=== PATIENT | male | born 1970 | race Caucasian/White ===

== ENCOUNTER 2016-05-06 14:24 | Inpatient (IN) | payer MEDICAID ==
[~2016-05-06] VITALS: Ht 180.3 cm; Wt 86.6 kg
--- NOTE | 2016-05-06 14:24 | NUR ---
Patient BIBA BLS, transferred to bed 3. RN evaluating patient at bedside.
[2016-05-06 14:33] VITALS: BP 141/76
[2016-05-06] MEDS ORDERED: NACL 0.9% 1,000 ML IV SCH (14:49)
[2016-05-06] MEDS ORDERED: MULTIVITAMIN1 SGL PO (14:49)
[2016-05-06] MEDS ORDERED: NATURE'S BLEND F1 MG PO (14:49)
[2016-05-06] MEDS ORDERED: NATURE'S BLEND500 M2 PO (14:49)
[2016-05-06] MEDS ORDERED: LASIX20 MG PO (14:49)
[2016-05-06] MEDS ORDERED: ALDACTONE50 MG PO (14:49)
[2016-05-06] MEDS ORDERED: ONDANSETRON 4 MG/2 ML VIAL IVP ONE (14:50)
[2016-05-06] MEDS ORDERED: FAMOTIDINE 20 MG/2 ML VIAL IVP ONE (14:50)
--- NOTE | 2016-05-06 15:06 | NUR ---
PATIENT PRESENTS TO ED WITH BS ON FIELD 120,ZOFRAN 4MG.PO GIVEN BY PARAMEDICS,HAD BEER X2 DAYS AGO.ERMD AWARE. HX: HEP.C,LIVER CIRRHOSIS,LOW PLATELETS,UMBILICAL HERNIA DENIES N/V/D; SKIN IS PINK/WARM/DRY; AAOX4 WITH EVEN AND STEADY GAIT; LUNGS CLEAR BL; HR EVEN AND REGULAR; PT DENIES ANY FEVER, CP, SOB, OR COUGH AT THIS TIME; PATIENT STATES PAIN OF 8/10 AT THIS TIME; VSS; PATIENT POSITIONED FOR COMFORT; HOB ELEVATED; BEDRAILS UP X2; BED DOWN. ER MD MADE AWARE OF PT STATUS.
[2016-05-06] MEDS ORDERED: LACTULOSE 20 GM/30 ML UDC PO ONE (16:25)
--- NOTE | 2016-05-06 17:50 | NUR ---
Patient will be admitted to care of DR. TAM. Admited to TELE Will go to shud[facility] B Belongings list completed. Report to TC GUTIERREZ.
--- NOTE | 2016-05-06 18:15 | NUR ---
RECEIVED PT FROM ER, PT IS AMBULATORY, AAO X4, SKIN INTACT, IV ON RIGHT AC FLUSHED PATENT AND INTACT, NO S/S OF RESPIRATORY DISTRESS OR DISCOMFORT NOTED, VITALS STABLE, MRSA COLLECTED, ORIENTED PT IN THE ROOM AND USE OF CALL LIGHT, SAFETY/FALL PRECAUTION ENFORCED, CALL LIGHT WITHIN REACH, WILL CONTINUE TO MONITOR.
[2016-05-06] MEDS ORDERED: ONDANSETRON 4 MG/2 ML VIAL IVP PRN (18:25)
[2016-05-06] MEDS ORDERED: THIAMINE 200 MG/2 ML VIAL IM SCH (18:30)
[2016-05-06] MEDS ORDERED: LORazepam 2 MG/ML VIAL IVP PRN (18:30)
--- NOTE | 2016-05-06 19:00 | NUR ---
ENDORSED PT TO DAVIE Botello RN FOR CONTINUITY OF CARE. PT IS STABLE AT THIS TIME.
[2016-05-06 19:10] VITALS: BP 122/65
--- NOTE | 2016-05-06 19:10 | NUR ---
RECEIVED REPORT FROM DAY NURSEPERCY. PATIENT RESTING IN BED. NO RESPIRATORY DISTRESS, SOB, OR DISCOMFORT. INITIAL ASSESSMENT AND BODY CHECK DONE. PATIENT IS AOX4, DRY SCABS NOTED TO ANTERIOR LEFT LOWER EXTREMITY, WOUND NOTED TO POSTERIOR LEFT LOWER EXTREMITY WITH DRY SCABS ABOVE IT. WOUND IS JAYRO WITH NO DRAINAGE. PATIENT ALSO HAS ANKLE MONITOR TO LEFT LOWER EXTREMITY. IV ACCESS TO RIGHT AC 20G, PATENT. DISCUSSED PLAN OF CARE, MEDICATION REGIMENT, AND PAIN MANAGEMENT WITH PATIENT. PATIENT VERBALIZED UNDERSTANDING. PLACED PATIENT ON SAFETY/SEIZURE PRECAUTIONS. CALL LIGHT LEFT WITHIN REACH, WILL CONTINUE TO MONITOR.
--- NOTE | 2016-05-06 19:20 | NUR ---
PATIENT BECOMING INCREASINGLY AGITATED. REQUESTING HOSPITAL STAFF TO REMOVE ANKLE MONITOR BRACELET. MANAGER BILLING AND CHARGE NURSE NOTIFIED. SECURITY ALONG WITH LOCAL PD CALLED. SPOKE WITH PATIENT IN REGARDS TO SITUATION. PATIENT CALM DOWN AND VERBALIZED UNDERSTANDING. WILL CONTINUE TO MONITOR.
--- NOTE | 2016-05-06 19:30 | NUR ---
I was called to the room of the patient in the capacity of the Faro Dealer, the patient was demanding that the nursing staff remove his Law Enforcement Placed Ankle Tracking device on his left ankle. When I arrived I assessed the left ankle and foot, the ankle bracelet was not cutting off the patients circulation, there was no signs of decreased perfusion to the foot, the foot has some edema but was warm to touch and was the appropriate skin color. There is pre-existing bruising below the ankle device, no active bleeding, positive pedal pulse. The patient has a large band-aid covering the front of his left leg about 4 inches above the ankle bracelet. Patient states the ankle device is cutting off his circulation and making him bleed. I advised the patient that I was able to place a finger between the device and his ankle, there is no signs of active bleeding, nor are there any signs of a medical need for us to remove his device. The device can be easily slid down his ankle, but the patient keeps pulling the device up his leg trying to prove it is tight. Patient became belligerent, cursing at me and staff, threatening that he is a "research assistant member" he can "break bricks with his head" and inferred that he would try to assault me. I advised the patient that he is not to be disruptive or threatening to other patients, nor staff and that regardless of his yelling we will not remove his device. I advised the patient that I would be happy to call his hydrological technical officer to request that they remove his ankle bracelet, I requested the number so I can call, he yelled at me saying he does not have the phone number to call. He was screaming and cursing in his room but it could be heard throughout the MST unit being extremely disruptive to all patients, I called security to [facility] and called [place] Police. Police arrived and spoke with the patient and notified him that they would not be loosening nor removing his ankle bracelet and that he was released from long-term under the agreement he had to wear that. He was advised by Police to stop asking the hospital staff to remove his ankle bracelet and he agreed. He was instructed by Police that he needed to be respectful to staff so that we can treat him, patient calmed down and agreed. Security left on standby while radiology staff where doing testing with patient including being transported to CT. I requested security to be present until we finished all his required tests for staff safety. I advised both day and night charge nurses and the primary nurse for the patient what the plan is and that should they feel threatened to immediately call the powerhouse operator and security.
--- NOTE | 2016-05-06 20:08 | NUR ---
DR. SAEZ PAGED AT THIS TIME, ON-CALL FOR DR. TAM.
--- NOTE | 2016-05-06 20:11 | NUR ---
SPOKE WITH DR. SAEZ OVER THE PHONE. CLARIFIED WITH MD OF THIAMINE ROUTE OF ADMINISTRATION. OKAY BY MD TO CHANGE ROUTE FROM IM TO PO, ALSO RECEIVED DIET ORDER AT THIS TIME.
[2016-05-06] MEDS ORDERED: THIAMINE 100 MG TAB PO SCH (20:36)
[2016-05-06] MEDS: NACL 0.9% 1,000 ML IV SCH (21:41)
[2016-05-06] MEDS: CALCIUM CARBONATE 500 MG TAB PO SCH (21:42)
[2016-05-06] MEDS: LACTULOSE 20 GM/30 ML UDC PO SCH (21:42)
[2016-05-06] MEDS: LORazepam 1 MG TAB PO SCH ×3 (21:42→21:47)
--- NOTE | 2016-05-06 21:47 | NUR ---
1830 LORAZEPAM MEDICATION HELD AT THIS TIME; WAS NOT GIVEN DURING PREVIOUS SHIFT, TOO CLOSE TO 2100 DOSE. PATIENT IN BED, RESTING, NO AGITATION OR ANXIETY NOTED. NO RESPIRATORY DISTRESS, SOB, OR DISCOMFORT. CALL LIGHT LEFT WITHIN REACH, WILL CONTINUE TO MONITOR.
--- NOTE | 2016-05-06 22:02 | NUR ---
PATIENT IN BED, SLEEPING. NO RESPIRATORY DISTRESS, SOB, OR DISCOMFORT. CALL LIGHT LEFT WITHIN REACH, WILL CONTINUE TO MONITOR.
[2016-05-07] VITALS: BP 110/70
--- NOTE | 2016-05-07 00:40 | NUR ---
PATIENT ASLEEP. NO RESPIRATORY DISTRESS, SOB, OR DISCOMFORT. CALL LIGHT LEFT WITHIN REACH, WILL CONTINUE TO MONITOR.
--- NOTE | 2016-05-07 03:18 | NUR ---
PATIENT SLEEPING. NO RESPIRATORY DISTRESS, SOB, OR DISCOMFORT. CALL LIGHT LEFT WITHIN REACH, WILL CONTINUE TO MONITOR.
[2016-05-07 04:00] VITALS: BP 126/64
[2016-05-07] MEDS: LORazepam 1 MG TAB PO SCH ×3 (04:20→20:32)
--- NOTE | 2016-05-07 06:02 | NUR ---
PATIENT IN BED, ASLEEP. NO RESPIRATORY DISTRESS, SOB, OR DISCOMFORT. CALL LIGHT LEFT WITHIN REACH, WILL CONTINUE TO MONITOR.
--- NOTE | 2016-05-07 07:21 | NUR ---
REPORT GIVEN TO DAY NURSEIRIS. PATIENT RESTING IN BED, STABLE. NO RESPIRATORY DISTRESS, SOB, OR DISCOMFORT. ALL NEEDS ATTENDED TO DURING SHIFT, CALL LIGHT LEFT WITHIN REACH.
--- NOTE | 2016-05-07 07:22 | NUR ---
RECEIVED REPORT FROM NIGHT NURSE, DAVIE MONTEZ. PATIENT APPEARED TO BE CALM AWAKE AND SITING RESTING IN BED. AAOX4 NO RESPIRATORY DISTRESS, SOB, OR DISCOMFORT. INITIAL ASSESSMENT AND BODY CHECK DONE. PATIENT DENIED ANY PAIN OF CHEST DISCOMFORT. PATIENT HAS DRY SCABS NOTED TO ANTERIOR LEFT LOWER EXTREMITY, WOUND NOTED TO POSTERIOR LEFT LOWER EXTREMITY WITH DRY SCABS ABOVE IT. WOUND IS JAYRO WITH NO DRAINAGE. PATIENT ALSO HAS ANKLE MONITOR TO LEFT LOWER EXTREMITY. IV ACCESS TO RIGHT AC 20G, PATENT. DISCUSSED PLAN OF CARE, MEDICATION REGIMENT, AND PAIN MANAGEMENT WITH PATIENT. PATIENT VERBALIZED UNDERSTANDING. PLACED PATIENT ON SAFETY/SEIZURE PRECAUTIONS. CALL LIGHT LEFT WITHIN REACH, WILL CONTINUE TO MONITOR.
[2016-05-07] MEDS: FOLIC ACID 1 MG TAB PO SCH (08:45)
[2016-05-07] MEDS: MULTIVITAMIN 1 TAB PO SCH (08:45)
[2016-05-07] MEDS: THIAMINE 100 MG TAB PO SCH (08:45)
[2016-05-07] MEDS: CALCIUM CARBONATE 500 MG TAB PO SCH ×2 (08:46→20:31)
[2016-05-07] MEDS: LACTULOSE 20 GM/30 ML UDC PO SCH ×2 (08:46→20:32)
[2016-05-07] MEDS: SPIRONOLACTONE 50 MG TAB PO SCH (08:46)
[2016-05-07 08:47] VITALS: BP 121/71
[2016-05-07] MEDS: FUROSEMIDE 20 MG TAB PO SCH (08:47)
--- NOTE | 2016-05-07 08:50 | NUR ---
DUE MORNING MEDICATIONS AND TEACHING GIVEN, PATIENT TOLERATED WELL AND VERBALIZED UNDERSTANDING. NO SIGN OF DISTRESS NOTED AT THIS TIME. NO COMPLAINING OF DISCOMFORT. ALL NEEDS ARE MET. CALL LIGHT WITHIN REACH. WILL CONTINUE TO MONITOR.
[2016-05-07] MEDS ORDERED: MAGNESIUM OXIDE 400 MG TAB PO SCH (10:30)
[2016-05-07] MEDS ORDERED: POTASSIUM PHOSPHATE 15 MM in NACL 0.9% 250 ML IV SCH (11:00)
--- NOTE | 2016-05-07 11:00 | NUR ---
GAVE PATIENT URINE CUP FOR SAMPLE FOR DRUG SCREEN AND INSTRUCTED PATIENT TO PEE IN CUP WHEN POSSIBLE, PATIENT VERBALIZED UNDERSTANDING.
[2016-05-07] MEDS: NACL 0.9% 1,000 ML IV SCH (11:02)
[2016-05-07] MEDS: MORPHINE SULFATE 2 MG/ML SYR IVP PRN (11:39)
[2016-05-07 11:45] VITALS: BP 114/60
--- NOTE | 2016-05-07 11:51 | NUR ---
DUE MEDICATIONS AND IVP MORPHINE GIVEN FOR ABD PAIN 11/26. PATIENT TOLERATED WELL. NO SIGN OF SOB OR RESPIRATORY DISTRESS NOTED AT THIS TIME. VSS, ALL NEEDS ARE MET. CALL LIGHT WITHIN REACH. WILL CONTINUE TO MONITOR.
[2016-05-07] MEDS ORDERED: CALCIUM CARB 600 MG TAB PO SCH (12:00)
[2016-05-07] MEDS ORDERED: ALBUTEROL SULFATE/IPRATROPIU 3 ML SOL IH PRN (12:20)
--- NOTE | 2016-05-07 13:22 | NUR ---
INFORMED TC PATRICK THAT THE PT HAS GIVEN THE SPUTUM SAMPLE AND IS AT BEDSIDE AND THE PT IS COMPLAINING THAT IV IS HURTING ARM
--- NOTE | 2016-05-07 14:48 | NUR ---
PATIENT SLEEP WELL IN BED. NO SIGN OF DISTRESS NOTED. ALL NEEDS ARE MET. CALL LIGHT WITHIN REACH. WILL CONTINUE TO MONITOR.
[2016-05-07 16:00] VITALS: BP 123/64
--- NOTE | 2016-05-07 16:50 | NUR ---
INSTRUCTED PATIENT TO COUGH UP AND PIT UP TO THE CUP FOR SPUTUM CULTURE, PATIENT VERBALIZED UNDERSTANDING.
[2016-05-07] MEDS: PIPER/TAZO 2.25GM/D5W PREMIX 50 ML IV SCH ×2 (17:23→23:57)
--- NOTE | 2016-05-07 19:00 | NUR ---
PATIENT STATED HE WAS UNABLE TO SPIT UP SPUTUM OUT TO THE CUP BUT WILL TRY LATER.
--- NOTE | 2016-05-07 19:04 | NUR ---
ENDORSED PATIENT CURRENT PLAN OF CARE TO NIGHT NURSE JOEY CROW. PATIENT RESTING WELL IN BED. NO SIGN OF DISTRESS NOTED.
--- NOTE | 2016-05-07 19:05 | NUR ---
PT IS CURRENTLY RESTING IN BED AWAKE ALERT,PT IS AWARE THAT SPUTUM IS NEEDED,PT VERBALIZES UNDERSTANDING.PT REFUSES TO HAVE SIDERAILS PADDED FOR SAFETY AND SZ PREC,BUT ALSO AT THIS TIME NO PADDING IS AVAILABLE FOR THE SIDERAILS. PT DENIES PAIN AND DISCOMFORT.IVF INFUSING WELL IV SITE IS CURRENTLY PATENT.PATIENT IS LISTENING TO HIS MUSIC.CALL LIGHT WITHIN REACH WILL CONTINUE TO MONITOR.
--- NOTE | 2016-05-07 19:23 | NUR ---
MD HERRERA CAME TO SEE THE PATIENT AND ORDERED TO STOP IV FLUIDS.ORDERS WILL BE CARRIED OUT.
[2016-05-07 20:00] VITALS: BP 126/70
--- NOTE | 2016-05-07 20:00 | NUR ---
Patient's Plan of Care was discussed and reviewed with CALL BOX WIRER: TRISTIN Smith
--- NOTE | 2016-05-07 20:15 | NUR ---
PT ASLEEP,NO DISTRESS, NO HHN TX NEEDED
[2016-05-07] MEDS: SACCHAROMYCES 250 MG CAP PO SCH (20:32)
--- NOTE | 2016-05-07 20:32 | NUR ---
PT REFUSED TO TAKE THE LACTULOSE I EXPLAINED WHY HE NEEDS TO TAKE IT PT STATES,"IM NOT TAKING THAT SHIT."PT REFUSED AND COVERED HIS HEAD.
--- NOTE | 2016-05-07 22:15 | NUR ---
PT IS CURRENTLY RESTING IN BED LISTENING TO HIS MUSIC WILL CONTINUE TO MONITOR.CALL LIGHT WITHIN REACH.
[2016-05-08] VITALS: BP 144/70
--- NOTE | 2016-05-08 | NUR ---
PT IS CURRENTLY SLEEPING IN BED,PT DENIES PAIN AND DISCOMFORT,NO SZ ACTIVITY NOTED,PT AMBULATES WELL AND CONTINUES TO REFUSE THE SCD'S PT STATES,"I DON'T WANT IT THEY GET IN THE WAY WHEN I TRY TO WALK,"PT REFUSED SCD'S. PT NEEDS MET LISTENS TO HIS MUSIC AND IS ABLE TO MAKE NEEDS KNOWN CALL LIGHT WITHIN REACH.
--- NOTE | 2016-05-08 00:30 | NUR ---
PT WAS REMINDED THAT SPUTUM SPECIMEN IS NEEDED.PT IS COUGHING AT TIMES, BUT COUGHT IS NON PRODUCTIVE AT THIS TIME.
--- NOTE | 2016-05-08 02:27 | NUR ---
PT HAS AN EPISODE OF CONFUSION ASSISTED BACK TO BED,AND CONTINUES TO BE MONITORED.ASSISTED BY NICHOLE ORTEGA AND MYSELF BACK TO BED. WILL CONTINUE TO MONITOR.
--- NOTE | 2016-05-08 02:49 | NUR ---
PT STABLE SLEEPING IN BED HIS TOILET GOT CLOGGED AND EVS MALE SODA JERKER CAME TO UNGLOG IT.
--- NOTE | 2016-05-08 04:35 | NUR ---
PT ASLEEP IN BED LISTENING TO HIS MUSIC.WILL CONTINUE TO MONITOR.
[2016-05-08 04:39] VITALS: BP 124/66
[2016-05-08] MEDS: LORazepam 1 MG TAB PO SCH ×3 (05:00→21:29)
[2016-05-08] MEDS: PIPER/TAZO 2.25GM/D5W PREMIX 50 ML IV SCH ×3 (05:20→17:22)
--- NOTE | 2016-05-08 05:25 | NUR ---
IM UNABLE TO COLLECT SPUTUM SPECIMEN AT THIS TIME PT IS NOT COUGHING NOT PRODUCING ANY SPUTUM.PT IS AWARE THAT SPECIMEN IS NEEDED AND VERBALIZES UNDERSTANDING.
--- NOTE | 2016-05-08 05:33 | NUR ---
ATIVAN PO MEDICATION HELD AT THIS TIME PT IS ASLEEP IN BED.WILL CONTINUE TO MONITOR.
--- NOTE | 2016-05-08 06:49 | NUR ---
PT RESTING IN BED INSTRUCTED AND EDUCATED TO DO THE BREATHING EXERCISES WITH THE INCENTIVE SPIROMETER PT VERBALIZES UNDERSTANDING PT STATES,"I'LL DO IT LATER."PT IN ROOM LISTENING TO MUSIC.
--- NOTE | 2016-05-08 07:23 | NUR ---
PT STABLE REPORT ENDORSED TO JOEY OSORIO AT BEDSIDE.
--- NOTE | 2016-05-08 07:23 | NUR ---
ASSUMED CONTINUITY OF CARE. NO SIGNS AND SYMPTOMS OF ACUTE DISTRESS NOTED. INITIAL ASSESSMENT DONE. HOB ELEVATED. EXPLAINED DIAGNOSIS, PLAN OF CARE, PAIN MANAGEMENT TEACHING, USE OF CALL LIGHT/BED/TV/BATHROOM. VERBALIZED UNDERSTANDING. SEIZURE AND FALL PRECAUTION APPLIED. CALL LIGHT WITHIN REACH.
--- NOTE | 2016-05-08 07:30 | NUR ---
Patient's Plan of Care was discussed and reviewed with JOEY: MIKI.
[2016-05-08 08:00] VITALS: BP 121/72
--- NOTE | 2016-05-08 08:30 | NUR ---
WOUND CARE EVALUATION NOTES: REASON FOR EVALUATION: LOW ADRIÁN AND LEFT FOOT WOUND COMPLETE SKIN ASSESSMENT DONE ON THIS 46 MALE PATIENT FROM HOME TO [facility], WITH INITIAL DIAGNOSIS OF ABDOMINAL PAIN, HEPATITIS C AND THROMBOCYTOPENIA. PAST MEDICAL HISTORY INCLUDE LIVER CIRRHOSIS, HEPATITIS C, RENAL FAILURE, THROMBOCYTOPENIA AND UMBILICAL HERNIA. ALL ABOVE INFORMATION WAS OBTAINED FROM THE ADMISSION H&P. LABS ARE WBC 3.7, H/H 9.2/28.1, GLUCOSE 101, ALBUMIN 2.0, PT/INR 14.4/1.5 AND PTT 33.1. CURRENT MEDS INCLUDE ZOSYN, THIAMINE, MULTIVITAMINS/ASCORBIC ACID, ATIVAN AND MORPHINE. PATIENT IS AWAKE, ALERT, ORIENTED TO PERSON, PLACE, DATE AND TIME. SKIN WARM TO TOUCH WNL, TOENAILS ARE THICKENED AND DISCOLORED, NO EDEMA, NO HAIR GROWTH AND +3 BILATERAL PEDAL PULSES. URINE AND BOWEL CONTINENT, ABLE TO AMBULATE TO THE RESTROOM CLAIMED. ABLE TO MAKE HIS NEEDS KNOWN. SURGICAL SCARRING NOTED ON THE ABDOMEN. ABLE TO TURN SELF WITH NO ASSISTANCE. INITIAL PLAN OF CARE AND PRESSURE PREVENTIVE MEASURES DISCUSSED, ABLE TO VERBALIZE UNDERSTANDING. INTEGUMENTARY: LEFT POSTERIOR ANKLE - ABRASIONS - MULTIPLE BROWN SCABS. NOTED TO HAVE A ANKLE MONITOR. PW RED LEFT ANTERIOR ANKLE - ABRASION - 100% BROWN RED SCAB. RECOMMENDATIONS: -PAINT LEFT FOOT ABRASIONS WITH SKIN PREP WIPES BIDWC AND LEAVE OPEN TO AIR -TURN AND REPOSITION PATIENT Q2H -ASSESS AND MONITOR SKIN CONDITION DURING POSITION CHANGE, PLEASE PAY PARTICULAR ATTENTION TO SACRALCOCCYX, ELBOWS AND HEELS -OFFLOAD BILATERAL HEELS BY PLACING PILLOWS UNDER CALVES AT ALL TIMES, UNLESS OTHERWISE CONTRAINDICATED -KEEP SKIN CLEAN AND DRY AT ALL TIMES. RECOMMENDATIONS DISCUSSED WITH PRIMARY RN AND RESIDENT PHYSICIAN, DR. GRAMAJO. NO FOLLOW UP NEEDED AT THIS TIME. PLEASE CONTACT [facility] FOR ANY CONCERNS, QUESTIONS AND CHANGES IN WOUND CONDITION.
[2016-05-08] MEDS: CHLORHEXADINE GLUC 2% CLOTH TP SCH (09:19)
[2016-05-08] MEDS: FOLIC ACID 1 MG TAB PO SCH (09:20)
[2016-05-08] MEDS: SPIRONOLACTONE 50 MG TAB PO SCH (09:20)
[2016-05-08] MEDS: MULTIVITAMIN 1 TAB PO SCH (09:20)
[2016-05-08] MEDS: LACTULOSE 20 GM/30 ML UDC PO SCH ×2 (09:20→21:29)
[2016-05-08] MEDS: SACCHAROMYCES 250 MG CAP PO SCH ×2 (09:20→21:29)
[2016-05-08] MEDS: THIAMINE 100 MG TAB PO SCH (09:20)
--- NOTE | 2016-05-08 09:20 | NUR ---
PATIENT HAS BEEN SCREENED AND CATEGORIZED HIGH NUTRITION RISK. PATIENT WILL BE SEEN WITHIN 1-2 DAYS OF ADMISSION. 05/07/16-05/08/[address] Addendum: 05/09/16 at [address] FNS CONSULT RECEIVED 05/07/16 FOR WOUNDS FOUND TO BE INAPPROPRIATE. BETITO SPOKE WITH WOMEN SPECIALIST REGARDING PT WOUNDS. RN REPORTS PT WITH SCABS AND ABRASIONS D/T PT ANKLE BRACELET AND PT CURRENT ADRIÁN SCORE IS 21. NO NUTRITIONAL INTERVENTION NEEDED FOR PT WOUNDS AT THIS TIME. PATIENT HAS BEEN RESCREENED AND RECATEGORIZED MODERATE NUTRITION RISK. PATIENT WILL BE SEEN WITHIN 3-5 DAYS OF ADMISSION. 05/09/16-05/11/[address]
[2016-05-08] MEDS: CALCIUM CARBONATE 500 MG TAB PO SCH ×2 (09:21→21:29)
[2016-05-08] MEDS: MUPIROCIN 2% OINT 22 GM TUBE TP SCH (09:21)
[2016-05-08] MEDS: FUROSEMIDE 20 MG TAB PO SCH (09:22)
[2016-05-08 12:00] VITALS: BP 107/62
--- NOTE | 2016-05-08 13:10 | NUR ---
DR. Aurora HOLDEN CAME, CHECKED PT. CHART AND SEEN PT.
--- NOTE | 2016-05-08 15:17 | NUR ---
DR. HERRERA CAME, SEEN PT., AND CHECKED PT. CHART.
--- NOTE | 2016-05-08 15:26 | NUR ---
CM NOTE PER GOLF STARTER AND RANGER CORTEZ EXT [phone], REVIEWS SHOULD BE SENT TO BOTH [facility] FAX# [phone] AND [facility] FAX# [phone]. INITIAL REVIEW SENT TO [facility] FAX# [phone] PH# [phone] AND TO [facility] FAX# [phone] PH# [phone] CM EXT [phone]
[2016-05-08 16:00] VITALS: BP 105/54
--- NOTE | 2016-05-08 16:00 | NUR ---
VITALS SIGNS STABLE. NO C/O PAIN. CONTINUE MONITORING.
[2016-05-08] MEDS ORDERED: CHLORHEXADINE GLUC 2% CLOTH TP SCH (19:15)
--- NOTE | 2016-05-08 19:16 | NUR ---
ENDORSED TO LIDYA GUEVARA. IN STABLE CONDITION.
--- NOTE | 2016-05-08 19:30 | NUR ---
RECEIVED FROM AM RN IN BED AWAKE AND NO SOB. LISTENING TO HIS PHONE / MUSIC. NO COMPLAINTS DONE. INTRODUCED MYSELF. REMINDED TO CALL AND USE CALL LIGHT FOR ANY HELP HE MIGHT NEED. DENIES PAIN AT THIS TIME. IVF SITE TO RAC#20 INTACT AND NO INFILTRATION. RE-ORIENTED TO ROOM AND CAREGIVERS. CARE PLANS FOR THE NIGHT DISCUSSED WITH PT. A/O X 4. ROM X 4.
--- NOTE | 2016-05-08 19:35 | NUR ---
NO DISTRESS/SOB/WHEEZING NOTED AT THIS TIME. NO INDICATION FOR HHN PRN TX.
--- NOTE | 2016-05-08 19:55 | NUR ---
MD GRAMAJO,V/RESIDENT CALLED AND INFORMED ME THAT THE PT. WILL BE TRANSFUSED WITH PLATELETS. WILL FOLLOW UP WITH ORDER AND WILL FOLLOW UP WITH LAB. WILL INFORM PT.
[2016-05-08 20:00] VITALS: BP 116/64
--- NOTE | 2016-05-08 23:36 | NUR ---
PT. NOTED ABLE TO TURN SELF. WAITING FOR PLATELETS ORDERED TO BE DELIVERED. LAB. TECH TOLD ME THEY WILL CALL ME IF IT COMES. PT. ABLE TO VERBALIZE NEEDS WELL. ABLE TO USE CALL LIGHT.
[2016-05-09] VITALS (7 sets, daily range): BP systolic 104–125; BP diastolic 59–82
[2016-05-09] MEDS: PIPER/TAZO 2.25GM/D5W PREMIX 50 ML IV SCH ×4 (00:21→17:35)
[2016-05-09] MEDS: MORPHINE SULFATE 2 MG/ML SYR IVP PRN ×2 (00:41→06:47)
--- NOTE | 2016-05-09 00:44 | NUR ---
PT. ABLE TO GO BM . PER PT. MODERATE AMOUNT. ENCOURAGED TO CALL IN CASE HE GOES BM AGAIN. REQUESTED FOR PAIN RELIEVER "MORPHINE IVP" MEDICATED REQUESTED. COMPLAINED OF ABDOMINAL PAIN. VERBALIZES NEEDS WELL. AMBULATED TO RESTROOM BY HIMSELF.
--- NOTE | 2016-05-09 01:39 | NUR ---
FOLLOWED UP WITH LAB. RE: PLATELETS ORDERED FOR TRANSFUSION. " NOT IN HERE YET AND I WILL CALL YOU IF IT IS DELIVERED. " PER IN CHARGE OF THE BLOOD BANK. CHARGE NURSE AWARE.
--- NOTE | 2016-05-09 03:30 | NUR ---
PT. SLEEPING. NO RESTLESSNESS NOTED. CALL LIGHT WITH IN REACH. A/OX 4. TELEMETRY MONITORING.
--- NOTE | 2016-05-09 05:20 | NUR ---
PLATELET TRANSFUSION STARTED. CONSENT SIGNED PRIOR TRANSFUSING.
--- NOTE | 2016-05-09 06:00 | NUR ---
PLATELETS GIVEN NO ADVERSE REACTIONS SEEN. AWAKE AND ALERT AND VERBALIZES WELL. NO SOB. NO URTICARIA NOTED. TELEMETRY MONITORING.
[2016-05-09] MEDS: LORazepam 1 MG TAB PO SCH (06:27)
--- NOTE | 2016-05-09 07:20 | NUR ---
ASSUMED CONTINUITY OF CARE. NO SIGNS AND SYMPTOMS OF ACUTE DISTRESS NOTED. INITIAL ASSESSMENT DONE. HOB ELEVATED. EXPLAINED DIAGNOSIS, PLAN OF ARE, PAIN MANAGEMENT TEACHING, CONTACT ISOLATION PRECAUTION, USE OF CALL LIGHT/BED/TV/BATHROOM. VERBALIZED UNDERSTANDING. CALL LIGHT WITHIN REACH.
--- NOTE | 2016-05-09 07:30 | NUR ---
Patient's Plan of Care was discussed and reviewed with SLAB OFF MILL TENDER: MIKI OSORIO
--- NOTE | 2016-05-09 07:31 | NUR ---
ENDORSED TO THE NEXT NURSE AWAKE AND ALERT. NO FURTHER COMPLAINTS DONE. GAVE MORPHINE IVP 2 MG. REQUESTED EARLIER. USES CALL LIGHT FOR HELP.
[2016-05-09] MEDS: CHLORHEXADINE GLUC 2% CLOTH TP SCH (08:49)
[2016-05-09] MEDS: THIAMINE 100 MG TAB PO SCH (08:50)
[2016-05-09] MEDS: CALCIUM CARBONATE 500 MG TAB PO SCH ×2 (08:50→21:30)
[2016-05-09] MEDS: LACTULOSE 20 GM/30 ML UDC PO SCH ×2 (08:50→21:30)
[2016-05-09] MEDS: SACCHAROMYCES 250 MG CAP PO SCH ×2 (08:50→21:30)
[2016-05-09] MEDS: MULTIVITAMIN 1 TAB PO SCH (08:51)
[2016-05-09] MEDS: FOLIC ACID 1 MG TAB PO SCH (08:51)
[2016-05-09] MEDS: MUPIROCIN 2% OINT 22 GM TUBE TP SCH (08:51)
[2016-05-09] MEDS: SPIRONOLACTONE 50 MG TAB PO SCH ×2 (08:56→09:03)
[2016-05-09] MEDS: FUROSEMIDE 40 MG TAB PO SCH ×2 (08:56→09:03)
[2016-05-09] MEDS ORDERED: MUPIROCIN 2% OINT 22 GM TUBE TP SCH (09:00)
--- NOTE | 2016-05-09 09:00 | NUR ---
JAKY ADANODORE SAID IT'S OK TO GIVE ALDACTONE AND LASIX FOR BP 104/59.
--- NOTE | 2016-05-09 09:42 | NUR ---
CALLED LUZ ELENA FROM BLOOD BANK AND VERIFIED MD ORDER OF 4 UNITS PLATELET. PER LUZ ELENA FROM BLOOD BANK THEY HAVE TO ORDER IT STAT. INFORMED CHARGE NURSE MARTHA GUEVARA.
--- NOTE | 2016-05-09 10:13 | NUR ---
DR. HERRERA CAME, SEEN PT., AND REVIEWED PT. CHART.
--- NOTE | 2016-05-09 11:10 | NUR ---
JOSEPH ADAN MADE AWARE OF PLATELET NOT AVAILABLE YET FOR TRANSFUSION.
--- NOTE | 2016-05-09 11:35 | NUR ---
CM NOTE CONCURRENT REVIEW SENT TO [facility] FAX# [phone] PH# [phone] AND TO [facility] FAX# [phone] PH# [phone] CM EXT [phone]
--- NOTE | 2016-05-09 13:43 | NUR ---
CALLED LUZ ELENA FROM BLOOD BANK AND ASKED FOR PLATELET AVAILABILITY. PER LUZ ELENA, THEY ARE STILL PROCESSING PLATELET OF THIS TIME AND THEY WILL CALL IF PLATELET IS AVAILABLE ALREADY. INFORMED CHARGE NURSE MARTHA GUEVARA.
--- NOTE | 2016-05-09 17:45 | NUR ---
INFORMED XAVIER ADAN OF PLT 16. NO ORDER RECEIVED. INFORMED CHARGE NURSE MARTHA GUEVARA.
--- NOTE | 2016-05-09 18:12 | NUR ---
INFORMED JOSEPH ADAN THAT PLATELET IS NOT AVAILABLE YET FROM LAB AT THIS TIME. NO ORDER RECEIVED.
--- NOTE | 2016-05-09 19:25 | NUR ---
RECEIVED REPORT FROM DAY NURSEMIKI. PATIENT RESTING IN BED. NO RESPIRATORY DISTRESS, SOB, OR DISCOMFORT. INITIAL ASSESSMENT AND BODY CHECK DONE. PATIENT IS AOX4, IV ACCESS TO RIGHT WRIST 22G, PATENT. PATIENT HAS MULTIPLE ABRASIONS TO LLE ALONG WITH ANKLE MONITOR. DISCUSSED PLAN OF CARE, MEDICATION REGIMENT, AND PAIN MANAGEMENT WITH PATIENT. PATIENT VERBALIZED UNDERSTANDING. PLACED PATIENT ON SAFETY PRECAUTIONS. CALL LIGHT LEFT WITHIN REACH, WILL CONTINUE TO MONITOR.
--- NOTE | 2016-05-09 22:10 | NUR ---
PATIENT IN BED, SLEEPING, LISTENING TO MUSIC. NO RESPIRATORY DISTRESS, SOB, OR DISCOMFORT. CALL LIGHT LEFT WITHIN REACH, WILL CONTINUE TO MONITOR.
--- NOTE | 2016-05-09 23:15 | NUR ---
TRANSFUSION OF PLATELETS HAD BEGUN, PATIENT TOLERATING WELL. NO RESPIRATORY DISTRESS, SOB, OR DISCOMFORT. CALL LIGHT LEFT WITHIN REACH, WILL CONTINUE TO MONITOR.
--- NOTE | 2016-05-09 23:40 | NUR ---
TRANSFUSION OF 1 UNIT OF PLATELETS COMPLETED. PATIENT TOLERATED WELL. NO RESPIRATORY DISTRESS, SOB, OR DISCOMFORT. CALL LIGHT LEFT WITHIN REACH, WILL CONTINUE TO MONITOR. TEMP 98.7, HR 89, RR 18, BP 117/67.
[2016-05-10] VITALS: BP 125/53
[2016-05-10] MEDS: PIPER/TAZO 2.25GM/D5W PREMIX 50 ML IV SCH ×4 (00:47→17:00)
--- NOTE | 2016-05-10 01:30 | NUR ---
SECOND UNIT OF PLATELET TRANSFUSION BEGUN. PATIENT TOLERATING WELL. NO RESPIRATORY DISTRESS, SOB, OR DISCOMFORT. CALL LIGHT LEFT WITHIN REACH, WILL CONTINUE TO MONITOR. TEMP 98.5, HR 89, RR 18, BP 122/78.
--- NOTE | 2016-05-10 01:52 | NUR ---
2ND UNIT OF PLATELETS COMPLETE. PATIENT TOLERATED WELL. NO RESPIRATORY DISTRESS, SOB, OR DISCOMFORT. TEMP 98.1, HR 92, RR 18, BP 113/85. CALL LIGHT LEFT WITHIN REACH, WILL CONTINUE TO MONITOR.
--- NOTE | 2016-05-10 03:09 | NUR ---
PATIENT ASLEEP. NO RESPIRATORY DISTRESS, SOB, OR DISCOMFORT. CALL LIGHT LEFT WITHIN REACH, WILL CONTINUE TO MONITOR.
[2016-05-10 04:00] VITALS: BP 123/67
--- NOTE | 2016-05-10 06:00 | NUR ---
PATIENT SLEEPING. NO RESPIRATORY DISTRESS, SOB, OR DISCOMFORT. CALL LIGHT LEFT WITHIN REACH, WILL CONTINUE TO MONITOR.
--- NOTE | 2016-05-10 07:10 | NUR ---
RECEIVED REPORT FROM NIGHT NURSE DEVON MONTEZ. PATIENT RESTING IN BED. NO RESPIRATORY DISTRESS, SOB, OR DISCOMFORT. INITIAL ASSESSMENT AND BODY CHECK DONE. PATIENT IS AOX4, IV ACCESS TO RIGHT WRIST 22G, PATENT. PATIENT HAS MULTIPLE ABRASIONS TO LLE ALONG WITH ANKLE MONITOR. DISCUSSED PLAN OF CARE, MEDICATION REGIMENT, AND PAIN MANAGEMENT WITH PATIENT. PATIENT VERBALIZED UNDERSTANDING. PLACED PATIENT ON SAFETY PRECAUTIONS. CALL LIGHT LEFT WITHIN REACH, WILL CONTINUE TO MONITOR.
[2016-05-10 08:00] VITALS: BP 101/55
[2016-05-10] MEDS: CHLORHEXADINE GLUC 2% CLOTH TP SCH (08:15)
[2016-05-10] MEDS: FUROSEMIDE 40 MG TAB PO SCH (09:00)
[2016-05-10] MEDS: SPIRONOLACTONE 50 MG TAB PO SCH (09:00)
[2016-05-10] MEDS: MUPIROCIN 2% OINT 22 GM TUBE TP SCH (09:00)
[2016-05-10] MEDS: LACTULOSE 20 GM/30 ML UDC PO SCH ×2 (09:02→21:36)
[2016-05-10] MEDS: THIAMINE 100 MG TAB PO SCH (09:02)
[2016-05-10] MEDS: FOLIC ACID 1 MG TAB PO SCH (09:02)
[2016-05-10] MEDS: CALCIUM CARBONATE 500 MG TAB PO SCH ×2 (09:02→21:36)
[2016-05-10] MEDS: SACCHAROMYCES 250 MG CAP PO SCH ×2 (09:02→21:36)
[2016-05-10] MEDS: MULTIVITAMIN 1 TAB PO SCH (09:02)
--- NOTE | 2016-05-10 09:07 | NUR ---
MORNING DUE MEDICATIONS GIVEN WITH TEACHING. PATIENT TOLERATED WELL AND VERBALIZED UNDERSTANDING. NO SIGN OF DISTRESS NOTED AT THIS TIME. DENIED ANY PAIN OR DISCOMFORT. CALL LIGHT WITHIN REACH. WILL CONTINUE TO MONITOR.
--- NOTE | 2016-05-10 10:13 | NUR ---
ENDORSED PATIENT FOR CONTINUITY OF CARE TO NURSE TC WILKES. PATIENT RESTING WELL IN BED WITH NO SIGN OF DISTRESS NOTED.
--- NOTE | 2016-05-10 10:27 | NUR ---
RECEIVED REPORT FROM IRIS MONTEZ. PT IS SLEEPING. NO S/S OF ACUTE DISTRESS OR DISCOMFORT. PT IS A/O X 4, AMBULATORY. SAFETY MEASURES IN PLACE. CALL LIGHT WITHIN REACH. WILL CONTINUE PLAN OF CARE AND CONTINUE TO MONITOR.
--- NOTE | 2016-05-10 11:01 | NUR ---
CM NOTE CONCURRENT REVIEW FAXED TO [facility] (FAX# [phone], C: [phone]) AND [facility] (FAX# [phone], C: [phone])
[2016-05-10 12:00] VITALS: BP 116/67
--- NOTE | 2016-05-10 12:48 | NUR ---
05/10/16 RD INITIAL ASSESSMENT COMPLETED PLEASE REFER TO NUTRITION ASSESSMENT UNDER CARE ACTIVITY FOR ESTIMATED NUTRITIONAL NEEDS. RD RECOMMENDATIONS: 1. CONTINUE 2GM SODIUM DIET TOLERATED PER MD --PT MEETING 100% OF ESTIMATED KCAL AND PROTEIN NEEDS WITH CURRENT PO INTAKE 2. RD WILL F/U 5-7 DAYS; LOW RISK. EDDY BOLTON RD
--- NOTE | 2016-05-10 13:00 | NUR ---
PT IS RESTING, WATCHING WRESTLING ON HIS PHONE. NO S/S OF ACUTE DISTRESS OR DISCOMFORT. TOLERATING PLATELET PHERESIS WELL. CALL LIGHT WITHIN REACH. WILL CONTINUE TO MONITOR.
--- NOTE | 2016-05-10 14:01 | NUR ---
[id number] RECEIVED CALL FROM NESTOR UREÑA AT [facility] REQUESTING CLINICAL REVIEWS. INFORMED HIM THAT REVIEWS SENT ON 05/08 AND 05/09 AND VERIFIED FAX NUMBER [phone] AND HE STATED HE WOULD CHECK FAX FOR THE REVIEWS. PROVIDED HIM WITH VERBAL UPDATE ON PT CONDITION AND THAT A REVIEW WOULD BE FAXED SOON. NESTOR'S PHONE CONTACT IS [phone] X [phone].
[2016-05-10 16:00] VITALS: BP 128/72
--- NOTE | 2016-05-10 16:46 | NUR ---
PT WAS SEEN BY MD. PT IS SLEEPING. NO S/S OF ACUTE DISTRESS OR DISCOMFORT. CALL LIGHT WITHIN REACH. WILL CONTINUE TO MONITOR.
--- NOTE | 2016-05-10 19:12 | NUR ---
ENDORSED REPORT TO [employer]INE[employer] RN EDSON. PT IS SLEEPING. NO S/S OF ACUTE DISTRESS OR DISCOMFORT. PT IN STABLE CONDITION.
--- NOTE | 2016-05-10 19:40 | NUR ---
RECEIVED PT IN STABLE CONDITION FROM AM NURSE. AWAKE,ALERT AND ORIENTED X4. ON TELE MONITOR. ON CONTACT ISOLATION FOR MRSA NARES. WITH O22L/NC. NO C/O ANY PAIN AT THIS TIME. HL ON RT AC #20 AND RT WRIST #22. BOTH PATENT. PLAN OF CARE DISCUSSED AND VERBALIZED UNDERSTANDING. CALL LIGHT PLACED WITHIN EASY REACH. WILL CONTINUE TO MONITOR.
[2016-05-10 19:50] VITALS: BP 113/62
--- NOTE | 2016-05-10 22:00 | NUR ---
SLEEPING WELL AT THIS TIME. NO S/S OF ANY DISCOMFORT NOR PAIN NOTED. WILL CONTINUE TO MONITOR.
[2016-05-11] MEDS: PIPER/TAZO 2.25GM/D5W PREMIX 50 ML IV SCH ×3 (00:05→13:16)
[2016-05-11 00:10] VITALS: BP 125/59
--- NOTE | 2016-05-11 02:00 | NUR ---
AWAKE, NO C/O ANY DISCOMFORT NOTED. AT THIS TIME. WILL CONTINUE TO MONITOR.
[2016-05-11] MEDS: MORPHINE SULFATE 2 MG/ML SYR IVP PRN ×3 (02:40→21:11)
[2016-05-11 04:20] VITALS: BP 112/63
--- NOTE | 2016-05-11 07:20 | NUR ---
ENDORSED PT IN STABLE CONDITION TO AM NURSE.
--- NOTE | 2016-05-11 07:30 | NUR ---
PATIENT IS AWAKE, ALERT, AND ORIENTED X4. 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 IV ON THE RIGHT WRIST AND RIGHT AC INTACT AND PATENT. FLUSHING WELL. INITIAL ASSESSMENT DONE. ABRASION ON THE LEFT LOWER EXTREMITY. ON 2L O2 VIA NASAL CANNULA. NO SOB OR OTHER DISTRESS. VITALS TAKEN AND WITHIN THE NORMAL LIMIT. SAFETY MEASURE CHECKED AND WILL CONTINUE TO MONITOR. CALL LIGHT WITHIN REACH.
--- NOTE | 2016-05-11 07:40 | NUR ---
AWAKE AND ALERT RESPONSIVE TO BUSINESS OBJECTS DEVELOPER VERBAL COMMANDS PATIENT C/O OF NASAL DRYNESS WITH SUPPLEMENTAL OXYGEN USE ADDED HUMIDIFIER Addendum: 05/11/16 at 0754 by Alireza Milner RT REVIEWED CHEST CT SCAN AND CXR DATED 05/10/2016
[2016-05-11 08:00] VITALS: BP 106/67
[2016-05-11] MEDS: CHLORHEXADINE GLUC 2% CLOTH TP SCH (08:29)
--- NOTE | 2016-05-11 09:00 | NUR ---
DUE MEDS GIVEN, PATIENT TOLERATED WELL. WILL CONTINUE TO MONITOR.
[2016-05-11] MEDS: LACTULOSE 20 GM/30 ML UDC PO SCH ×2 (09:51→21:11)
[2016-05-11] MEDS: FOLIC ACID 1 MG TAB PO SCH (09:51)
[2016-05-11] MEDS: SACCHAROMYCES 250 MG CAP PO SCH ×2 (09:52→21:11)
[2016-05-11] MEDS: CALCIUM CARBONATE 500 MG TAB PO SCH ×2 (09:52→21:11)
[2016-05-11] MEDS: THIAMINE 100 MG TAB PO SCH (09:52)
[2016-05-11] MEDS: MULTIVITAMIN 1 TAB PO SCH (09:52)
[2016-05-11] MEDS: SPIRONOLACTONE 50 MG TAB PO SCH (09:52)
[2016-05-11] MEDS: MUPIROCIN 2% OINT 22 GM TUBE TP SCH (09:53)
[2016-05-11] MEDS: FUROSEMIDE 40 MG TAB PO SCH (09:53)
--- NOTE | 2016-05-11 10:00 | NUR ---
PATIENT AWAKE, RESTING IN BED NO COMPLAINED OF PAIN. CALL LIGHT WITHIN REACH.
[2016-05-11 11:55] VITALS: BP 114/50
--- NOTE | 2016-05-11 12:00 | NUR ---
VITALS TAKEN AND WITHIN THE NORMAL LIMIT. ZOSYN GIVEN. WILL CONTINUE TO MONITOR.
--- NOTE | 2016-05-11 13:00 | NUR ---
PLATELET TRANSFUSION STARTED. PATIENT IS TOLERATING WELL. NO S/S OF REACTION. WILL CONTINUE TO MONITOR. Addendum: 05/11/16 at 1759 by Mike Vo RN WRONG TIME, TRANSFUSION STARTED AT 1400
--- NOTE | 2016-05-11 13:30 | NUR ---
THORACENTESIS IS BEING DONE AT BEDSIDE AND PLATELET TRANSFUSION CURRENTLY INFUSING. Addendum: 05/11/16 at 1800 by Mike Vo RN WRONG TIME, THORACENTESIS DONE AT 1430.
--- NOTE | 2016-05-11 14:12 | NUR ---
CM NOTE CONCURRENT REVIEW FAXED TO [facility] (FAX# [phone], C: [phone]) AND [facility] (FAX# [phone], C: [phone])V
[2016-05-11 16:00] VITALS: BP 107/70
--- NOTE | 2016-05-11 16:14 | NUR ---
SECOND UNIT OF PLATELET STARTED INFUSING. WILL CONTINUE TO MONITOR.
--- NOTE | 2016-05-11 17:00 | NUR ---
PLATELETS IS STILL CURRENTLY INFUSING. NO S/S OF REACTION. VITALS ARE WITHIN THE NORMAL LIMIT WILL CONTINUE TO MONITOR.
--- NOTE | 2016-05-11 18:00 | NUR ---
PLATELET TRANSFUSION COMPLETED. NO S/S OF REACTION.
--- NOTE | 2016-05-11 19:20 | NUR ---
REPORT GIVEN TO ASSOCIATE PATHOLOGIST NIGHT AT BEDSIDE. PATIENT IS IN STABLE CONDITION AND ALL NEED MET AT THIS TIME.
--- NOTE | 2016-05-11 19:45 | NUR ---
RECEIVED PT IN STABLE CONDITION FROM [place] NURSE. AWAKE,ALERT AND ORIENTED X4. ON TELE MONITOR. WITH NO C/O ANY PAIN A THIS TIME. ON CONTACT ISOLATION FOR MRSA NARES. HL O RT AC #20 AND RT WRIST #22. BOTH CLEAR AND PATENT. PLAN OF CARE DISCUSSED AND VERBALIZED UNDERSTANDING. CALL LIGHT AND URINAL WITHIN EASY REACH. INSTRUCTED PT THE NEED FOR STOOL SPECIMEN. WILL CONTINUE TO MONITOR.
[2016-05-11 20:00] VITALS: BP 107/58
--- NOTE | 2016-05-11 22:00 | NUR ---
SLEEPING AT THIS TIME. NO S/S OF ANY DISCOMFORT NOR PAIN NOTED. WILL CONTINUE TO MONITOR.
[2016-05-12] VITALS: BP 109/57
--- NOTE | 2016-05-12 01:00 | NUR ---
AWAKE. ON O22L/NC. NO ACUTE DISTRESS NOTED. DENIES ANY PAIN AT THIS TIME. WILL CONTINUE TO MONITOR.
--- NOTE | 2016-05-12 03:00 | NUR ---
SLEEPING WELL AT THIS TIME. NO S/SOF ANY DISTRESS NOTED.
[2016-05-12 04:30] VITALS: BP 115/60
--- NOTE | 2016-05-12 06:30 | NUR ---
NO DISCOMFORT NOTED AT THIS TIME. WILL CONTINUE TO MONITOR.
--- NOTE | 2016-05-12 07:29 | NUR ---
RECEIVED REPORT FROM NIGHT NURSE, PT IS AAOX4, PT HAS O2 2L VIA NC BUT STATES HE DOESN'T NEED IT AT THIS TIME PULSE OX 93% ON ROOM AIR, ABRASION AND OLD SCAB TO LEFT LOWER LEFT, RIGHT WRIST 22G SALINE LOCK PATENT AND INTACT, RIGHT AC 20G SALINE LOCK PATENT AND INTACT, REVIEW PLAN OF CARE WITH PT PT VERBALIZED UNDERSTANDING, INITIAL ASSESSMENT COMPLETED, ALL SAFETY/FALL PRECAUTION MET, ALL NEEDS MET, CALL LIGHT WITHIN REACH. WILL CONTINUE TO MONITOR.
--- NOTE | 2016-05-12 07:29 | NUR ---
ENDORSED PT IN STABLE CONDITION TO AM NURSE FOR CONTINUITY OF CARE.
[2016-05-12 08:00] VITALS: BP 109/64
[2016-05-12] MEDS ORDERED: CEPHULAC10 GM/152 PO (08:01)
[2016-05-12] MEDS ORDERED: FUROSEMIDE40 M1 PO (08:01)
[2016-05-12] MEDS ORDERED: BACTROBAN 2%20 MG/GM TP (08:01)
[2016-05-12] MEDS ORDERED: APLICARE ANTIS118 M2 TP (08:01)
[2016-05-12] MEDS ORDERED: COLACE100 M1 PO (08:01)
[2016-05-12] MEDS: CHLORHEXADINE GLUC 2% CLOTH TP SCH (09:14)
[2016-05-12] MEDS: LACTULOSE 20 GM/30 ML UDC PO SCH (09:15)
[2016-05-12] MEDS: FOLIC ACID 1 MG TAB PO SCH (09:15)
[2016-05-12] MEDS: CALCIUM CARBONATE 500 MG TAB PO SCH (09:16)
[2016-05-12] MEDS: FUROSEMIDE 40 MG TAB PO SCH (09:16)
[2016-05-12] MEDS: THIAMINE 100 MG TAB PO SCH (09:16)
[2016-05-12] MEDS: SACCHAROMYCES 250 MG CAP PO SCH (09:16)
[2016-05-12] MEDS: MUPIROCIN 2% OINT 22 GM TUBE TP SCH (09:16)
[2016-05-12] MEDS: MULTIVITAMIN 1 TAB PO SCH (09:16)
--- NOTE | 2016-05-12 09:21 | NUR ---
DUE MEDICATIONS GIVEN, PT TOLERATED WELL. PT CURRENTLY WATCHING TV. CALL LIGHT WITHIN REACH. WILL CONTINUE TO MONITOR.
--- NOTE | 2016-05-12 10:50 | NUR ---
MD AWARE OF POSITIVE OB RESULTS. WILL CONTINUE TO MONITOR PT.
--- NOTE | 2016-05-12 11:05 | NUR ---
DISCUSSED DISCHARGE PLAN WITH PT, PT VERBALIZED UNDERSTANDING, ALL NEEDS MET. CALL LIGHT WITHIN REACH.
[2016-05-12 12:00] VITALS: BP 108/63
--- NOTE | 2016-05-12 12:30 | NUR ---
ALL DISCHARGE PAPERWORK SIGNED BY PT, PRESCRIPTION GIVEN AND EDUCATION, FOLLOW UP APPOINTMENTS INFORMATION GIVEN PT VERBALIZED UNDERSTANDING, IV REMOVED TIP INTACT. ALL ID BANDS REMOVED, ALL PERSONAL BELONGING WITH PT.
--- NOTE | 2016-05-12 13:30 | NUR ---
PT WAS WALKED OUT TO FRONT LOBBY IN STABLE CONDITION.
--- NOTE | 2016-05-12 15:59 | NUR ---
FAXED [facility]CURRENT REVIEW [facility] [phone] PHONE [phone] FAXED CONCURRENT REVIEW TO [facility] [phone] PHONE [phone]
== END 2016-05-12 13:30 | disposition home or self-care (01) | DRG 280 ==
LOC: MED 14:24 → MTU 17:31
PROVIDERS: ADMIT Student in an Organized Health Care Education/Training Program; ATTEND Student in an Organized Health Care Education/Training Program
PROC: 30233R1 Transfusion of Nonautologous Platelets into Peripheral Vein, Percutaneous Approach (ICD-10-PCS; principal; 2016-05-09)
PROC: 0W993ZX Drainage of Right Pleural Cavity, Percutaneous Approach, Diagnostic (ICD-10-PCS; 2016-05-11)
DX: K70.31 Alcoholic cirrhosis of liver with ascites (principal); J96.21 Acute and chronic respiratory failure with hypoxia; J69.0 Pneumonitis due to inhalation of food and vomit; K72.90 Hepatic failure, unspecified without coma; E43 Unspecified severe protein-calorie malnutrition; J90 Pleural effusion, not elsewhere classified; D61.818 Other pancytopenia; C22.0 Liver cell carcinoma; E87.1 Hypo-osmolality and hyponatremia; G90.9 Disorder of the autonomic nervous system, unspecified; E83.39 Other disorders of phosphorus metabolism; B19.20 Unspecified viral hepatitis C without hepatic coma; E83.42 Hypomagnesemia; D53.9 Nutritional anemia, unspecified; J98.11 Atelectasis; E83.51 Hypocalcemia; R74.0 Nonspecific elevation of levels of transaminase and lactic acid dehydrogenase [LDH]; E80.6 Other disorders of bilirubin metabolism; Z22.322 Carrier or suspected carrier of Methicillin resistant Staphylococcus aureus; Z68.26 Body mass index [BMI] 26.0-26.9, adult; Z79.899 Other long term (current) drug therapy; Z88.8 Allergy status to other drugs, medicaments and biological substances